=== PATIENT | male | born 1990 | race Asian ===

== ENCOUNTER 2019-04-14 10:41 | Emergency (ER) | payer SELFPAY ==
[~2019-04-14] VITALS: Ht 167.6 cm; Wt 65.8 kg
[2019-04-14 10:44] VITALS: BP 126/74
--- NOTE | 2019-04-14 10:44 | NUR ---
ED Nurse Note: Pt came in due to abd pain that started yesterday and now c/o bilateral shoulder pain when he woke up this morning. Pt denies any trauma to his shoulders. AAO x4, ambulatory with non labored breathing.
[2019-04-14] MEDS ORDERED: Morphine Sulfate 4mg/ml Inj (IV USE ONLY) IVP ONE (11:00)
[2019-04-14] MEDS ORDERED: DiphenhydrAMINE 50mg/ml Inj IVP ONE (11:00)
[2019-04-14] MEDS ORDERED: Isovue-300 100ml vial INJ PRN (11:00)
--- NOTE | 2019-04-14 11:26 | Emergency Room Report ---
History of Present Illness General Chief Complaint: Abdominal Pain Source: Patient Present Illness HPI Patient reports that he had sashimi yesterday along with a shake That had hemp Last night he had increased epigastric discomfort nausea Today the pain has localized to the umbilical region and had increased pain with touching the area denies any diarrhea he also felt itchy denies any previous abdominal surgeries Denies any chest pain or shortness of breath And presents for further eval Allergies: Coded Allergies: No Known Allergies (Unverified , 04/14/19) Patient History Past Medical History: see triage record Reviewed Nursing Documentation: PMH: Agreed; PSxH: Agreed Nursing Documentation-PMH Past Medical History: No Stated History Review of Systems All Other Systems: negative except mentioned in HPI Physical Exam Vital Signs Date Time Temp Pulse Resp B/P (MAP) Pulse Ox O2 Delivery O2 Flow Rate FiO2 04/14/19 10:34 98.6 69 16 112/80 (91) 98 Room Air Sp02 EP Interpretation: reviewed, normal General Appearance: well appearing, no apparent distress Head: normocephalic, atraumatic Eyes: bilateral eye PERRL, bilateral eye EOMI ENT: hearing grossly normal, normal pharynx, TMs + canals normal, uvula midline Neck: full range of motion, supple, no meningismus, no bony tend Respiratory: lungs clear, normal breath sounds, no rhonchi, no respiratory distress, no retraction, no accessory muscle use Cardiovascular #1: normal peripheral pulses, regular rate, rhythm, no edema, no gallop, no JVD, no murmur Gastrointestinal: normal bowel sounds, soft, no mass, no organomegaly, non- distended, no guarding, no hernia, no pulsatile mass, no rebound, tenderness - Periumbilical area Genitourinary: no CVA tenderness Musculoskeletal: normal inspection Neurologic: oriented x3, responsive, splitter hand III-XII nml as tested, motor strength/ tone normal, sensory intact Psychiatric: mood/affect normal Lymphatic: normal inspection, no adenopathy Medical Decision Making Diagnostic Impression: Primary Impression: Abdominal pain ER Course With the history exam and presentation, multiple differentials considered, including but not limited to appendicitis, gastritis, cholecystitis, diverticulitis Patient CT imaging is initially read as no acute disease on further discussion with radiologist He was not able to visualize the appendix given the patient's elevated white blood cell count Given his repeat abdominal exam and continued discomfort at the periumbilical area I am concerned about an early appendicitis general surgery is also at bedside and consulting they do agree with observation and reevaluation and further inpatient care Labs Test 04/14/19 10:50 White Blood Count 17.5 K/UL (4.8-10.8) Red Blood Count 5.42 M/UL (4.70-6.10) Hemoglobin 15.7 G/DL (14.2-18.0) Hematocrit 47.5 % (42.0-52.0) Mean Corpuscular Volume 87 FL (80-99) Mean Corpuscular Hemoglobin 28.9 PG (27.0-31.0) Mean Corpuscular Hemoglobin Concent 33.0 G/DL (32.0-36.0) Red Cell Distribution Width 11.6 % (11.6-14.8) Platelet Count 251 K/UL (150-450) Mean Platelet Volume 6.4 FL (6.5-10.1) Neutrophils (%) (Auto) 75.9 % (45.0-75.0) Lymphocytes (%) (Auto) 16.1 % (20.0-45.0) Monocytes (%) (Auto) 6.8 % (1.0-10.0) Eosinophils (%) (Auto) 0.8 % (0.0-3.0) Basophils (%) (Auto) 0.5 % (0.0-2.0) Urine Color Pale yellow Urine Appearance Clear Urine pH 6 (4.5-8.0) Urine Specific [place] 1.020 (1.005-1.035) Urine Protein Negative (NEGATIVE) Urine Glucose (UA) Negative (NEGATIVE) Urine Ketones Negative (NEGATIVE) Urine Blood Negative (NEGATIVE) Urine Nitrite Negative (NEGATIVE) Urine Bilirubin Negative (NEGATIVE) Urine Urobilinogen Normal MG/DL (0.0-1.0) Urine Leukocyte Esterase 2+ (NEGATIVE) Urine RBC 0 /HPF (0 - 0) Urine WBC 2-4 /HPF (0 - 0) Urine Squamous Epithelial Cells Occasional /LPF Urine Bacteria Occasional /HPF (NONE) Urine Mucus Few /LPF (NONE/OCC) Sodium Level 140 MMOL/L (136-145) Potassium Level 4.4 MMOL/L (3.5-5.1) Chloride Level 103 MMOL/L (98-107) Carbon Dioxide Level 30 MMOL/L (21-32) Anion Gap 7 mmol/L (5-15) Blood Urea Nitrogen 17 mg/dL (7-18) Creatinine 0.8 MG/DL (0.55-1.30) Estimat Glomerular Filtration Rate > 60 mL/min (>60) Glucose Level 94 MG/DL (74-106) Calcium Level 9.1 MG/DL (8.5-10.1) Total Bilirubin 0.6 MG/DL (0.2-1.0) Aspartate Amino Transf (AST/SGOT) 15 U/L (15-37) Alanine Aminotransferase (ALT/SGPT) 14 U/L (12-78) Alkaline Phosphatase 52 U/L (46-116) Total Protein 7.9 G/DL (6.4-8.2) Albumin 4.0 G/DL (3.4-5.0) Globulin 3.9 g/dL Albumin/Globulin Ratio 1.0 (1.0-2.7) Lipase 270 U/L (73-393) Urine Opiates Screen Negative (NEGATIVE) Urine Barbiturates Screen Negative (NEGATIVE) Phencyclidine (PCP) Screen Negative (NEGATIVE) Urine Amphetamines Screen Negative (NEGATIVE) Urine Benzodiazepines Screen Negative (NEGATIVE) Urine Cocaine Screen Negative (NEGATIVE) Urine Marijuana (THC) Screen Positive (NEGATIVE) CT/MRI/US Diagnostic Results CT/MRI/US Diagnostic Results : Impression CT abdomen pelvis PELVIS: Appendix: No findings to suggest acute appendicitis. Bladder: Mildly distended urinary bladder without wall thickening. No radiodense luminal stones. No perivesical stranding. Reproductive: The prostate gland and seminal vesicles appear unremarkable. ABDOMEN and PELVIS: Intraperitoneal space: Unremarkable. No free air. No significant fluid collection. Bones/joints: No acute fracture. No dislocation. Soft tissues: Unremarkable. Vasculature: Unremarkable. No abdominal aortic aneurysm. Lymph nodes: Unremarkable. No enlarged lymph nodes. IMPRESSION: No acute findings in the abdomen or pelvis. <MYCVCSECTION> Critical Value Communications 04/14/19 13:40 Call From Jah Vick MD on 04/14 13:39 (-07: Last Vital Signs Date Time Temp Pulse Resp B/P (MAP) Pulse Ox O2 Delivery O2 Flow Rate FiO2 04/14/19 10:44 60 18 Room Air 04/14/19 10:44 98.6 126/74 98 Status: improved Disposition: ADMITTED INPATIENT Condition: Serious Jah Boles DO Apr 14, 2019 11:26
[2019-04-14 11:37] LABS: APPEARANCE,URINE CLEAR; BILIRUBIN, URINE NEGATIVE (NEGATIVE); COLOR,URINE PALE YELLOW; GLUCOSE, URINE (UA) NEGATIVE (NEGATIVE); KETONES,URINE NEGATIVE (NEGATIVE); LEUKOCYTE ESTERASE ,URINE 2+ (NEGATIVE); NITRITE,URINE NEGATIVE (NEGATIVE); PH,URINE 6 (4.5-8.0); PROTEIN,URINE NEGATIVE (NEGATIVE); UROBILINOGEN,URINE NORMAL MG/DL (0.0-1.0)
[2019-04-14 11:38] LABS: BASOPHILS % (AUTO) 0.5 % (0.0-2.0); EOSINOPHILS % (AUTO) 0.8 % (0.0-3.0); HEMATOCRIT 47.5 % (42.0-52.0); HEMOGLOBIN 15.7 G/DL (14.2-18.0); LYMPHOCYTES % (AUTO) 16.1 % (20.0-45.0); MEAN CORPUSCULAR VOLUME 87 FL (80-99); MONOCYTES % (AUTO) 6.8 % (1.0-10.0); NEUTROPHILS % (AUTO) 75.9 % (45.0-75.0); PLATELET COUNT 251 K/UL (150-450); RED BLOOD COUNT 5.42 M/UL (4.70-6.10); RED CELL DISTRIBUTION WIDTH 11.6 % (11.6-14.8); WHITE BLOOD COUNT 17.5 K/UL (4.8-10.8)
[2019-04-14 11:51] LABS: ANION GAP 7 mmol/L (5-15); BLOOD UREA NITROGEN 17 mg/dL (7-18); CALCIUM 9.1 MG/DL (8.5-10.1); CARBON DIOXIDE 30 MMOL/L (21-32); CHLORIDE 103 MMOL/L (98-107); CREATININE 0.8 MG/DL (0.55-1.30); POTASSIUM 4.4 MMOL/L (3.5-5.1); SODIUM 140 MMOL/L (136-145)
[2019-04-14 11:53] LABS: ALANINE AMINOTRANSFERASE 14 U/L (12-78); ALKALINE PHOSPHATASE 52 U/L (46-116); ASPARTATE AMINO TRANSFERASE 15 U/L (15-37); BILIRUBIN,TOTAL 0.6 MG/DL (0.2-1.0)
--- NOTE | 2019-04-14 12:08 | NUR ---
ED Nurse Note: Pt taken to CT.
--- NOTE | 2019-04-14 12:31 | Diagnostic Imaging Report ---
EXAM: CT Abdomen and Pelvis With Intravenous Contrast CLINICAL HISTORY: PAIN TECHNIQUE: Axial computed tomography images of the abdomen and pelvis with intravenous contrast. Sagittal and coronal reformatted images were created and reviewed. CTDI is 10.58 mGy and DLP is 550 mGy-cm. One or more of the following dose reduction techniques were used: automated exposure control, adjustment of the mA and/or kV according to patient size, use of iterative reconstruction technique. COMPARISON: No relevant prior studies available. FINDINGS: Lung bases: Unremarkable. No consolidation. No effusions. ABDOMEN: Liver: Unremarkable. No suspicious parenchymal lesions Gallbladder and bile ducts: Unremarkable. No calcified stones. No ductal dilation. Pancreas: Unremarkable. No mass. No ductal dilation. Spleen: Unremarkable. No splenomegaly. Adrenals: Unremarkable. No mass. Kidneys and ureters: Unremarkable. No solid mass. No hydronephrosis. Stomach and bowel: Unremarkable. No obstruction. No mucosal thickening. PELVIS: Appendix: No findings to suggest acute appendicitis. Bladder: Mildly distended urinary bladder without wall thickening. No radiodense luminal stones. No perivesical stranding. Reproductive: The prostate gland and seminal vesicles appear unremarkable. ABDOMEN and PELVIS: Intraperitoneal space: Unremarkable. No free air. No significant fluid collection. Bones/joints: No acute fracture. No dislocation. Soft tissues: Unremarkable. Vasculature: Unremarkable. No abdominal aortic aneurysm. Lymph nodes: Unremarkable. No enlarged lymph nodes. IMPRESSION: No acute findings in the abdomen or pelvis. <MYCVCSECTION> Critical Value Communications 04/14/19 13:40 Call From [facility] Jah Boles MD on 04/14 13:39 (-07: 00)
--- NOTE | 2019-04-14 12:40 | NUR ---
ED Nurse Note: Pt is aware of hospital admission and that he can not eat or drink/NPO.
[2019-04-14 13:00] VITALS: BP 112/69
[2019-04-14 15:25] VITALS: BP 125/70
--- NOTE | 2019-04-14 15:25 | NUR ---
ER DISCHARGE NOTE: Pt signed AMA form and ER MD aware. pt is aox4, on room air, with stable vital signs. pt was given dc instructions, pt was able to verbalize understanding, pt id band and iv site removed without complications. pt is able to ambulate with steady gait. pt took all belongings and left with his family member.
[2019-04-14] MEDS ORDERED: Piperacillin/Tazobactam 3.375 GM in NS 110 ML IVPB SCH (16:30)
--- NOTE | 2019-04-14 19:15 | Pre-op HX & Phy Repo 2 SIG ---
DATE OF ADMISSION: 04/14/2019 REASON FOR CONSULTATION: Abdominal pain. REQUESTING PHYSICIAN: Jah Boles D.O., from emergency room. HISTORY OF PRESENT ILLNESS: This is a 28-year-old male, who presented to emergency room complaining of abdominal pain since last night. He stated that the pain was located at the epigastrium with radiation to the shoulders and he made himself vomit, but today, the pain is below the umbilicus. The pain is supposed to be steady without any radiation. He does not have any nausea or vomiting. He had a normal bowel movement yesterday. He denies any fever, cough, dysuria, or frequency. He denies any previous history of similar pain. PAST MEDICAL HISTORY: He denies allergies, asthma, diabetes, hypertension, cardiac or renal diseases. SURGERIES: None. MEDICATIONS: None. SOCIAL HISTORY: The patient is a 28-year-old male. 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 REVIEW OF SYSTEMS: Noncontributory. PHYSICAL EXAMINATION: GENERAL: The patient appeared to be a 28-year-old male, lying on the gurney, complaining of discomfort in the lower abdomen. HEENT: Head is normocephalic and atraumatic. Eyes, pupils equal, round, and reactive to light. Mouth is clear. NECK: There is no palpable thyromegaly or adenopathy. CHEST: Clear to auscultation and percussion. HEART: There is no gallop or murmur. S1 and S2 are within normal limits. ABDOMEN: Soft and flat. At the present time, he does not have any tenderness, but he was complaining of tenderness immediately below the umbilicus, but the patient has received morphine sulfate about 1 or 2 hours ago. There is no rigidity and there is no rebound tenderness. Bowel sounds are present. There is no palpable organomegaly. GENITAL: Normal. EXTREMITIES: Within normal limits. LABORATORY DATA: CBC has shown WBC of 18,000 with left shift and CAT scan of the abdomen is nonspecific and the radiologist has mentioned that he is unable to see the appendix and definitely there is no stranding. ASSESSMENT: Abdominal pain, rule out appendicitis. PLAN: With WBC of 18,000, he still requires to be observed and if by tomorrow, the pain increases or he continues having leukocytosis, he will require to have exploratory laparoscopy and appendectomy. This has been explained to the patient. He understood and agreed. William Vang M.D. DR: Roxy JOB#: [id number] CC:
== END 2019-04-14 17:13 | disposition left against medical advice (07) ==
LOC: EDBD 10:41 → EMR 14:38 → EDBEDREQ 15:02 → 3E 15:19 → UNDOADMIN 15:19 → CANBEDREQ 15:31 → EMR 17:13
DX: R10.33 Periumbilical pain (principal)
CPT/HCPCS: 36415; 74177; 80053; 80307; 81003; 83690; 85025; 96361; 96374; 96375; 99285; J1200; J2270; J2405; J2543; Q9967